=== PATIENT | male | born 1945 | race Caucasian/White ===

== ENCOUNTER 2023-04-14 20:13 | Inpatient (IN) | payer MEDICARE ==
[2023-04-14] MEDS ORDERED: Ondansetron PF 4 MG/2 ML Vial IVP PRN (23:12)
[2023-04-14] MEDS ORDERED: Ondansetron ODT 4 MG TAB PO PRN (23:12)
[2023-04-14] MEDS ORDERED: Senokot S 8.6-50 MG TAB PO PRN (23:12)
[2023-04-14 23:41] VITALS: BMI 29.0
[2023-04-15] MEDS: Carbidopa/Levodopa CR 50-200 mg Tablet PO SCH ×2 (00:02→09:03)
[2023-04-15] MEDS: Mirtazapine 15 MG TAB PO SCH (00:16)
[2023-04-15] MEDS: clonazePAM 0.5 MG TAB PO SCH (02:10)
[2023-04-15 03:43] LABS: #Eosinphils 0.1 10x3/uL (0.0-0.5); #Monocytes 0.7 10x3/uL (0.0-1.1); #Neutrophils 5.5 10x3/uL (1.5-8.4); %Basophils 0.4 % (0.0-2.0); %Eosinophils 0.7 % (0.0-6.0); %Monocytes 8.8 % (0.0-10.0); Hematocrit 41.8 % (38.8-50.0); Hemoglobin 13.9 g/dL (13.5-17.5); Mean Corpuscular HGB CONC 33.3 g/dL (32.0-36.0); Mean Corpuscular Hemoglobin 29.5 pg (27.0-33.0); Mean Corpuscular Volume 88.7 fl (81.2-95.1); Mean Platelet Volume 10.3 fl (7.4-10.4); Platelet Count 191 10x3/uL (150-450); RBC Distribution Width 13.9 % (11.5-14.5); Red Blood Cell (RBC) Count 4.71 10x6/uL (4.32-5.72); White Blood Cell (WBC) Count 8.4 10x3/uL (3.5-10.5)
[2023-04-15 03:51] LABS: Anion Gap 11 mmol/L (10-20); BUN (Urea Nitrogen) 23 mg/dL (8.4-25.7); Calc. Creatinine Clearance 90 mL/min (70-130); Calcium 9.2 mg/dL (7.8-10.44); Carbon Dioxide 27 mmol/L (23-31); Chloride 105 mmol/L (98-107); Estimated GFR 91; Glucose 108 mg/dL (83-110); Potassium 3.7 mmol/L (3.5-5.1); Sodium 139 mmol/L (136-145)
[2023-04-15 04:09] LABS: Thyroid Stimulating Hormone 0.5273 uIU/mL (0.35-4.94)
[2023-04-15 04:12] LABS: Syphilis Antibody Nonreactive (Nonreactive); Syphilis Antibody Index 0.06 S/CO (<1.00 Non-Reactive)
[2023-04-15] MEDS: Aspirin 81 mg Enteric Coated Tablet PO SCH (09:02)
[2023-04-15] MEDS: metFORMIN 500 MG TAB PO SCH (09:02)
[2023-04-15] MEDS: Losartan 50 MG TAB PO SCH (09:03)
[2023-04-15] MEDS: Carvedilol 25 MG TAB PO SCH (09:03)
[2023-04-15] MEDS: Ascorbic Acid 500 mg Chewable Tablet PO SCH (09:03)
[2023-04-15] MEDS: Cyanocobalamin (Vitamin B-12) 1,000 MCG TAB PO SCH (09:03)
[2023-04-15] MEDS: Magnesium Oxide 400 MG TAB PO SCH (09:03)
[2023-04-15] MEDS: Tamsulosin HCl 0.4 MG CAP PO SCH (09:03)
[2023-04-15] MEDS: Sodium Chloride 0.9% 1,000 ML IV SCH (16:09)
[2023-04-15] MEDS: Warfarin Sodium 2.5 MG TAB PO SCH (18:40)
[2023-04-15] MEDS: Rosuvastatin 20 MG TAB PO SCH (20:54)
[2023-04-15 21:38] LABS: Bilirubin Neg (Negative); Blood, Urine Negative (Negative); Clarity Clear (Clear); Glucose, Urine (Dipstick) Normal (Negative); Ketone, Urine Negative (Negative); Leukocyte Negative (Negative); Nitrite Negative (Negative); Protein, Urine (Dipstick) 15 mg/dl (Neg-Trace); Urobilinogen Normal mg/dL (Less than 2)
[2023-04-15 22:15] LABS: Bacteria/HPF None Seen HPF (None Seen); CAUTI Indications for Culture Alt mental st,lethar; RBC/HPF None Seen HPF (0-3); Squamous Epithelial None Seen HPF (0-3); WBC/HPF None Seen HPF (0-3)
[2023-04-15 22:16] LABS: Urine Culture Reflex No No
[2023-04-16 03:38] LABS: #Eosinphils 0.1 10x3/uL (0.0-0.5); #Monocytes 0.7 10x3/uL (0.0-1.1); %Basophils 0.5 % (0.0-2.0); %Eosinophils 1.5 % (0.0-6.0); %Lymphocytes 25.2 % (18.0-47.0); %Monocytes 8.7 % (0.0-10.0); %Neutrophils 63.7 % (40.0-75.0); Hematocrit 40.7 % (38.8-50.0); Hemoglobin 13.8 g/dL (13.5-17.5); Mean Corpuscular HGB CONC 33.9 g/dL (32.0-36.0); Mean Corpuscular Volume 91.5 fl (81.2-95.1); Mean Platelet Volume 10.4 fl (7.4-10.4); Platelet Count 182 10x3/uL (150-450); RBC Distribution Width 14.2 % (11.5-14.5); Red Blood Cell (RBC) Count 4.45 10x6/uL (4.32-5.72); White Blood Cell (WBC) Count 7.9 10x3/uL (3.5-10.5)
[2023-04-16 04:12] LABS: ALT (SGPT) Less than 7 U/L (8-55); AST (SGOT) 10 U/L (5-34); Albumin 3.6 g/dL (3.4-4.8); Alkaline Phosphatase 49 U/L (40-110); Anion Gap 11 mmol/L (10-20); BUN (Urea Nitrogen) 17 mg/dL (8.4-25.7); Bilirubin, Total 0.8 mg/dL (0.2-1.2); Calc. Creatinine Clearance 87 mL/min (70-130); Calcium 8.8 mg/dL (7.8-10.44); Carbon Dioxide 25 mmol/L (23-31); Chloride 106 mmol/L (98-107); Estimated GFR 90; Globulin 2.4 g/dL (2.4-3.5); Glucose 89 mg/dL (83-110); Potassium 4.1 mmol/L (3.5-5.1); Sodium 138 mmol/L (136-145)
[2023-04-16] MEDS: Warfarin Sodium 5 MG TAB PO SCH (16:48)
[2023-04-16] MEDS: Acetaminophen 325 MG TAB PO PRN (18:29)
[2023-04-17 04:02] LABS: INR-International Normal Ratio 4.2
[2023-04-17 09:18] VITALS: TEMP 98
[2023-04-17 12:45] VITALS: BP 121/61
[2023-04-19] MEDS ORDERED: Warfarin Sodium 2.5 MG TAB PO SCH (17:00)
[2023-04-20] MEDS ORDERED: Warfarin Sodium 5 MG TAB PO SCH (17:00)
== END 2023-04-17 16:44 | disposition home or self-care (01) | DRG 56 ==
LOC: CSHTELE 20:23
PROVIDERS: ADMIT Family Medicine; ATTEND Hospitalist
DX: G20.A1 Parkinson's disease without dyskinesia, without mention of fluctuations (principal); L89.154 Pressure ulcer of sacral region, stage 4; I25.10 Atherosclerotic heart disease of native coronary artery without angina pectoris; E11.9 Type 2 diabetes mellitus without complications; E78.5 Hyperlipidemia, unspecified; K59.09 Other constipation; Z66 Do not resuscitate; N40.0 Benign prostatic hyperplasia without lower urinary tract symptoms; K21.9 Gastro-esophageal reflux disease without esophagitis; Z51.5 Encounter for palliative care; Z95.1 Presence of aortocoronary bypass graft; Z86.718 Personal history of other venous thrombosis and embolism; Z79.01 Long term (current) use of anticoagulants; Z86.73 Personal history of transient ischemic attack (TIA), and cerebral infarction without residual deficits; Z79.82 Long term (current) use of aspirin; Z79.84 Long term (current) use of oral hypoglycemic drugs; Z79.899 Other long term (current) drug therapy
CPT/HCPCS: 36415; 36416; 70551; 80048; 80053; 81001; 82607; 83605; 83735; 84443; 85025; 85610; 86140; 86780; 87040; 97139; J7050